=== PATIENT | female | born 1945 | race Caucasian/White ===

== ENCOUNTER 2018-01-21 07:21 | Observation (INO) | payer MEDICARE ==
[~2018-01-21] VITALS: Ht 149.9 cm; Wt 97.5 kg
[~2018-01-21 07:21] MED LIST: ASPI-515 PO; CIPR500T87 PO; DICL100T PO; EZET10TA18 PO; LACT1CAP43 PO; METF10002 PO; METR500T PO; OMEP20TA62 PO
[2018-01-21] MEDS ORDERED: SODIUM CHLORIDE 0.9% 1,000 ML IV ONE (07:40)
[2018-01-21 07:45] VITALS: BP 144/84
[2018-01-21] MEDS ORDERED: ZOLP-413 PO (07:54)
[2018-01-21] MEDS ORDERED: DIPH25CA61 PO (08:04)
[2018-01-21] MEDS ORDERED: AMLO2.5T PO (08:04)
[2018-01-21] MEDS ORDERED: HYDR25TA6 PO (08:04)
[2018-01-21] MEDS ORDERED: METF10002 PO (08:04)
[2018-01-21] MEDS ORDERED: MULT-6 PO (08:04)
[2018-01-21] MEDS ORDERED: ACYC200C4 PO (08:04)
[2018-01-21] MEDS ORDERED: MOME17SP INH (08:04)
[2018-01-21] MEDS ORDERED: CHOL5000 PO (08:04)
[2018-01-21] MEDS ORDERED: HEPARIN 1,000 UNITS/ML, 10ML ONE (08:51)
[2018-01-21] MEDS ORDERED: NITROGLYCERIN 5 MG/ML, 10ML ONE (08:51)
[2018-01-21] MEDS ORDERED: TICAGRELOR 90 MG TABLET ONE (08:51)
[2018-01-21] MEDS ORDERED: BIVALIRUDIN 250 MG ONE (08:51)
[2018-01-21] MEDS ORDERED: VERAPAMIL 2.5 MG/ML, 2ML ONE ×2 (08:51→10:43)
[2018-01-21] MEDS ORDERED: FENTANYL PF 100 MCG/2ML ONE (08:51)
[2018-01-21] MEDS ORDERED: MIDAZOLAM 1 MG/ML, 2ML ONE ×2 (08:52→11:02)
[2018-01-21] MEDS ORDERED: LIDOCAINE 2%, 20ML ONE (08:52)
[2018-01-21] MEDS ORDERED: SODIUM CHLORIDE 0.9% 1,000 ML IV SCH (13:28)
[2018-01-21] MEDS ORDERED: ACYCLOVIR 200 MG CAPSULE PO PRN (18:30)
[2018-01-21 19:17] VITALS: BP 169/82
[2018-01-21] MEDS ORDERED: ZOLPIDEM 5MG TABLET PO SCH (21:00)
[2018-01-21] MEDS: TICAGRELOR 90 MG TABLET PO SCH (21:44)
[2018-01-22 00:44] VITALS: BP 123/77
[2018-01-22] MEDS ORDERED: DICLOFENAC SODIUM 75 MG TABLET.DR PO PRN (08:00)
[2018-01-22] MEDS ORDERED: ROSU5TAB PO (08:14)
[2018-01-22] MEDS ORDERED: UBID100C PO (08:14)
[2018-01-22] MEDS ORDERED: TICA90TA PO (08:14)
[2018-01-22] MEDS ORDERED: METO25TA2 PO (08:21)
[2018-01-22] MEDS ORDERED: ASPIRIN 81 MG TABLET CHEW PO SCH (09:00)
[2018-01-22] MEDS ORDERED: HYDROCHLOROTHIAZIDE 12.5 MG CAPSULE PO SCH (09:00)
[2018-01-22] MEDS: AMLODIPINE 2.5 MG TABLET PO SCH ×2 (09:00→09:22)
[2018-01-22] MEDS ORDERED: FLUTICASONE NASAL SPRAY 16GM NAS SCH (09:00)
[2018-01-22] MEDS ORDERED: ASPIRIN 81 MG TABLET EC PO SCH (09:00)
[2018-01-22] MEDS ORDERED: MULTIVITAMIN 1 TABLET PO SCH (09:00)
[2018-01-22 09:12] VITALS: BP 117/78
[2018-01-22] MEDS: TICAGRELOR 90 MG TABLET PO SCH (09:22)
[2018-01-24] MEDS ORDERED: CHOLECALCIFEROL 1,000 UNIT TABLET PO SCH (09:00)
== END 2018-01-22 11:20 | disposition home or self-care (01) ==
LOC: CACL 07:21 → 5SO 11:49 → CACL 13:28 → 5SO 13:28
PROVIDERS: ADMIT Internal Medicine Cardiovascular Disease; ATTEND Internal Medicine Cardiovascular Disease
DX: R07.89 Other chest pain (principal); I10 Essential (primary) hypertension; E78.2 Mixed hyperlipidemia; E11.9 Type 2 diabetes mellitus without complications; R00.2 Palpitations; I20.0 Unstable angina; Z68.41 Body mass index [BMI] 40.0-44.9, adult; Z82.49 Family history of ischemic heart disease and other diseases of the circulatory system
CPT/HCPCS: 92933; 93458; 93571; 93572; 99156; 99157; C1724; C1725; C1769; C1874; C1887; C1894; G0378; J0583; J1644; J2250; J3010; J3490; Q9967

== ENCOUNTER → 2018-09-05 | Outpatient (CLI) | payer MEDICARE ==
[~2018-09-05] MED LIST changes: +ACYC200C4 PO; +AMLO2.5T3 PO; +CHOL5000 PO; +DIPH25CA61 PO; +HYDR25TA6 PO; +METF10007 PO; +METO25TA2 PO; +MOME17SP INH; +MULT-6 PO; +ROSU5TAB PO; +TICA90TA PO; +UBID100C PO; +ZOLP-413 PO
== END | disposition home or self-care (01) ==
LOC: CFH 10:35
PROVIDERS: ATTEND Specialist
DX: Z12.31 Encounter for screening mammogram for malignant neoplasm of breast (principal)
CPT/HCPCS: 77067

== ENCOUNTER → 2020-09-12 | Outpatient (CLI) | payer MEDICARE ==
[~2020-09-12] MED LIST changes: -AMLO2.5T3 PO; +AMLO2.5T5 PO; -EZET10TA18 PO; +EZET10TA70 PO
== END | disposition home or self-care (01) ==
LOC: CFH 10:38
PROVIDERS: ATTEND Specialist
DX: Z12.31 Encounter for screening mammogram for malignant neoplasm of breast (principal)
CPT/HCPCS: 77063; 77067